=== PATIENT | female | born 1960 | race Caucasian/White ===

== ENCOUNTER → 2016-11-18 | Outpatient (CLI) | payer OTHER ==
[~2016-11-18] MED LIST: BENA40TA2 PO; ERGO500017 PO; ESTR1PAT10 TD; EZET10TA3 PO; FERR325T20 PO; HYDR-3240 PO; IBUP200T48 PO; LACT1CAP40 PO; LOSA50TA2 PO; LOSA50TA6 PO; METF500T PO; METF500T4 PO; MULT-750 PO; MULT-82 PO; OMEP-110 PO; SIMV20TA3 PO; VITA1TAB19 PO; ZOLP10TA PO
== END | disposition home or self-care (01) ==
LOC: CFH 07:51
PROVIDERS: ATTEND Nurse Practitioner Family
DX: R92.8 Other abnormal and inconclusive findings on diagnostic imaging of breast (principal)
CPT/HCPCS: G0206-LT

== ENCOUNTER → 2016-11-30 | Outpatient (CLI) | payer OTHER | END | disposition home or self-care (01) | LOC: CFH 15:04 | PROVIDERS: ATTEND Nurse Practitioner Family | DX: R92.8 Other abnormal and inconclusive findings on diagnostic imaging of breast (principal); N64.89 Other specified disorders of breast; Z90.710 Acquired absence of both cervix and uterus ==

== ENCOUNTER → 2016-12-16 | Outpatient (CLI) | payer OTHER ==
[~2016-12-16] MED LIST changes: +LIDOCAINE 1%-EPI 1:100K, 20ML ONE; +SODIUM BICARBONATE 4.2%, 5ML ONE
== END | disposition home or self-care (01) ==
LOC: CFH 09:08
PROVIDERS: ATTEND Nurse Practitioner Family
DX: N63 Unspecified lump in breast (principal)
CPT/HCPCS: 19083; 88305; G0206; J3490

== ENCOUNTER → 2018-12-25 | Outpatient (CLI) | payer OTHER ==
[~2018-12-25] MED LIST changes: -BENA40TA2 PO; +BENA40TA3 PO; +EZET10TA18 PO; -EZET10TA3 PO; +FERR325T18 PO; -FERR325T20 PO; -IBUP200T48 PO; +IBUP200T49 PO; -LIDOCAINE 1%-EPI 1:100K, 20ML ONE; +LOSA50TA14 PO; -LOSA50TA6 PO; +METF500T17 PO; -METF500T4 PO; +MULT-642 PO; -MULT-82 PO; -SODIUM BICARBONATE 4.2%, 5ML ONE
== END | disposition home or self-care (01) ==
LOC: CFH 16:12
PROVIDERS: ATTEND Nurse Practitioner Family
DX: Z12.31 Encounter for screening mammogram for malignant neoplasm of breast (principal)
CPT/HCPCS: 77067

== ENCOUNTER → 2020-03-20 | Outpatient (CLI) | payer OTHER ==
[~2020-03-20] MED LIST changes: -EZET10TA18 PO; +EZET10TA70 PO; +SIMV20TA19 PO; -SIMV20TA3 PO
== END | disposition home or self-care (01) ==
LOC: CFH 15:40
PROVIDERS: ATTEND Nurse Practitioner Family
DX: Z12.31 Encounter for screening mammogram for malignant neoplasm of breast (principal)
CPT/HCPCS: 77067

== ENCOUNTER → 2021-03-23 | Outpatient (CLI) | payer OTHER ==
[~2021-03-23] MED LIST changes: +HYDR-2214 PO; -HYDR-3240 PO; -LACT1CAP40 PO; +LACT1CAP45 PO; +MULT-482 PO; -MULT-750 PO
== END | disposition home or self-care (01) ==
LOC: CFH 15:29
PROVIDERS: ATTEND Nurse Practitioner Family
DX: Z12.31 Encounter for screening mammogram for malignant neoplasm of breast (principal)
CPT/HCPCS: 77063; 77067

== ENCOUNTER → 2021-04-09 | Outpatient (CLI) | payer OTHER | END | disposition home or self-care (01) | LOC: CFH 14:31 | PROVIDERS: ATTEND Nurse Practitioner Family | DX: N63.24 Unspecified lump in the left breast, lower inner quadrant (principal) | CPT/HCPCS: 76642; 77065 ==

== ENCOUNTER → 2021-04-15 | Outpatient (CLI) | payer OTHER ==
[~2021-04-15] MED LIST changes: +LIDOCAINE 1%, 20ML ONE; +LIDOCAINE 1%-EPI 1:100K, 20ML ONE; +SODIUM BICARBONATE 4.2%, 5ML ONE
== END | disposition home or self-care (01) ==
LOC: CFH 07:38
PROVIDERS: ATTEND Nurse Practitioner Family
DX: N63.25 Unspecified lump in the left breast, overlapping quadrants (principal); C50.812 Malignant neoplasm of overlapping sites of left female breast; Z17.0 Estrogen receptor positive status [ER+]
CPT/HCPCS: 19083; 77065; 88305; 88341; 88342; 88360; J3490

== ENCOUNTER 2021-05-07 13:19 | Outpatient (CLI) | payer OTHER ==
[~2021-05-07 13:19] MED LIST changes: -LIDOCAINE 1%, 20ML ONE; -LIDOCAINE 1%-EPI 1:100K, 20ML ONE; -SODIUM BICARBONATE 4.2%, 5ML ONE
[2021-05-07 14:10] LABS: ALANINE AMINOTRANSFERASE 26 U/L (12-78); ANION GAP 8 mmol/L (5-15); CALCIUM 9.5 mg/dL (8.5-10.1); CHLORIDE 107 mmol/L (98-107); CREATININE 0.72 mg/dL (0.55-1.02)
[2021-05-07 14:12] LABS: ALKALINE PHOSPHATASE 66 U/L (45-117); BILIRUBIN,TOTAL 0.7 mg/dL (0.2-1.0); TOTAL PROTEIN 7.7 g/dL (6.4-8.2)
[2021-05-07] MEDS ORDERED: INSU3INS2 SQ (14:31)
[2021-05-07] MEDS ORDERED: CYAN500T7 PO (14:31)
[2021-05-07] MEDS ORDERED: LOSA100T14 PO (14:31)
[2021-05-07] MEDS ORDERED: ATOR10TA PO (14:31)
[2021-05-07] MEDS ORDERED: CHOL10003 PO (14:31)
[2021-05-07] MEDS ORDERED: METF500T17 PO (14:31)
[2021-05-07] MEDS ORDERED: EMPA25TA PO (14:31)
== END 2021-05-07 23:59 | disposition home or self-care (01) ==
LOC: STAR 13:19
PROVIDERS: ATTEND Surgery
DX: Z01.818 Encounter for other preprocedural examination (principal); Z01.812 Encounter for preprocedural laboratory examination; C50.412 Malignant neoplasm of upper-outer quadrant of left female breast
CPT/HCPCS: 36415; 80053; 93005

== ENCOUNTER 2021-05-13 11:49 | Day surgery (SDC) | payer OTHER ==
[~2021-05-13] VITALS: Ht 172.7 cm; Wt 81.3 kg
[~2021-05-13 11:49] MED LIST changes: +ATOR10TA PO; +CHOL10003 PO; +CYAN500T7 PO; +EMPA25TA PO; +INSU3INS2 SQ; +LOSA100T14 PO
[2021-05-13 12:56] VITALS: BP 135/87
[2021-05-13] MEDS ORDERED: CHLORHEXIDINE 15 ML UDC PO ONE (13:00)
[2021-05-13] MEDS ORDERED: LACTATED RINGERS 1,000 ML IV SCH (13:00)
[2021-05-13] MEDS ORDERED: BUPIVACAINE/PF 0.5% ONE (14:36)
[2021-05-13] MEDS ORDERED: ISOSULFAN BLUE 10 MG/ML, 5ML IV ONE (14:37)
[2021-05-13] MEDS ORDERED: EPINEPHRINE 1 MG/ML, 1ML ONE (14:37)
[2021-05-13] MEDS ORDERED: MIDAZOLAM 1 MG/ML, 2ML ONE (14:56)
[2021-05-13] MEDS ORDERED: FENTANYL PF 100 MCG/2ML ONE ×2 (14:56→17:03)
[2021-05-13] MEDS ORDERED: ONDANSETRON 2MG/ML, 2ML ONE (15:02)
[2021-05-13] MEDS ORDERED: ROCURONIUM 10 MG/ML,10ML ONE (15:02)
[2021-05-13] MEDS ORDERED: DEXAMETHASONE 4 MG/ML, 1ML ONE (15:02)
[2021-05-13] MEDS ORDERED: SUGAMMADEX 200 MG/2 ML IVPush ONE (15:02)
[2021-05-13] MEDS ORDERED: CEFAZOLIN 1,000 MG ONE (15:02)
[2021-05-13] MEDS ORDERED: PROPOFOL 10 MG/ML, 20ML ONE (15:02)
[2021-05-13] MEDS ORDERED: LABETALOL 5MG/ML, 20ML IV PRN (16:00)
[2021-05-13] MEDS ORDERED: HYDROmorphone 2 MG/ML, 1ML IVPush PRN (16:00)
[2021-05-13] MEDS ORDERED: OXYcodone 5 MG/5 ML ORAL.SOL UDC PO PRN (16:00)
[2021-05-13] MEDS ORDERED: KETOROLAC 30 MG/1 ML IV PRN (16:00)
[2021-05-13] MEDS ORDERED: ALBUTEROL SULFATE 2.5 MG/3 ML NPPB PRN (16:00)
[2021-05-13] MEDS ORDERED: MEPERIDINE/PF 25MG/0.5ML IVPush PRN (16:00)
[2021-05-13] MEDS ORDERED: DIAZEPAM 5 MG/ML, 2ML IVPush PRN (16:00)
[2021-05-13] MEDS ORDERED: ACETAMINOPHEN 325 MG TABLET PO PRN (16:00)
[2021-05-13] MEDS ORDERED: PROMETHAZINE 25 MG/ML, 1ML IV PRN (16:00)
[2021-05-13] MEDS ORDERED: hydrALAzine 20 MG/ML, 1ML IV PRN (16:00)
[2021-05-13] MEDS ORDERED: FENTANYL PF 250 MCG/5ML ONE (16:05)
[2021-05-13] MEDS ORDERED: HYDR-2214 PO (16:59)
[2021-05-13] MEDS ORDERED: ONDA4TAB7 PO (16:59)
[2021-05-13] MEDS ORDERED: OXYcodone 5 MG/5 ML ORAL.SOL UDC ONE (17:03)
[2021-05-13] MEDS: FENTANYL PF 100 MCG/2ML IV PRN ×2 (17:06→17:14)
== END 2021-05-13 18:30 | disposition home or self-care (01) ==
LOC: OUT 11:49
PROVIDERS: ATTEND Surgery
DX: C50.412 Malignant neoplasm of upper-outer quadrant of left female breast (principal); E11.9 Type 2 diabetes mellitus without complications; I10 Essential (primary) hypertension; E78.5 Hyperlipidemia, unspecified; E66.9 Obesity, unspecified; Z17.0 Estrogen receptor positive status [ER+]; Z68.27 Body mass index [BMI] 27.0-27.9, adult; Z79.4 Long term (current) use of insulin; Z79.899 Other long term (current) drug therapy; Z87.891 Personal history of nicotine dependence; Z98.51 Tubal ligation status; Z90.710 Acquired absence of both cervix and uterus; Z98.890 Other specified postprocedural states; Z82.49 Family history of ischemic heart disease and other diseases of the circulatory system; Z80.0 Family history of malignant neoplasm of digestive organs
CPT/HCPCS: 19301; 19316; 38525; 76098; 82962; 88305; 88307; 88329; 88333; J0171; J2250; J3010; J7120; J0690; J1100; J2405; J2704

== ENCOUNTER 2021-05-13 12:30 | Outpatient (CLI) | payer OTHER ==
[2021-05-13] MEDS ORDERED: CHLORHEXIDINE 15 ML UDC ONE (12:59)
[2021-05-13] MEDS ORDERED: HYDR-2214 PO (16:59)
[2021-05-13] MEDS ORDERED: ONDA4TAB7 PO (16:59)
== END 2021-05-13 23:59 | disposition home or self-care (01) ==
LOC: RAD 12:30
PROVIDERS: ATTEND Surgery
DX: C50.912 Malignant neoplasm of unspecified site of left female breast (principal)
CPT/HCPCS: 38792; A9541